=== PATIENT | male | born 1970 | race Caucasian/White ===

== ENCOUNTER 2017-08-01 13:06 | Emergency (ER) | payer OTHER ==
[2017-08-01] MEDS ORDERED: PROVENTIL 2.5 MG/3 ML NEB IH ONE ×2 (13:28→13:48)
[2017-08-01] MEDS ORDERED: TYLENOL 325 MG PO ONE (13:28)
--- NOTE | 2017-08-01 13:35 | ERPHSYRPT ---
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 He has one day hx of fever, chills , aches, myalgias, cough. Used advil cold and mucinex today. No V/D. Some headache and sore throat. No shortness of breath. Timing/Duration: yesterday Allergies/Adverse Reactions: No Known Drug Allergies Allergy (Verified 08/01/17 13:22) Home Medications: Fluticasone/Salmeterol Disc [Advair 250-50 Diskus 14 Dose] 1 puff IH BID 11/10/14 [History] Nebivolol HCl [Bystolic] 10 mg PO DAILY 11/10/14 [History] Hx Tetanus, Diphtheria Vaccination/Date Given: No Hx Influenza Vaccination/Date Given: No Hx Pneumococcal Vaccination/Date Given: No Immunizations Up to Date: Yes - Review of Systems Constitutional: Fever, Chills, Fatigue, Malaise, Weakness Eyes: No Symptoms Ears, Nose, & Throat: Throat Pain Respiratory: Cough, No Dyspnea Cardiac: No Chest Pain Abdominal/Gastrointestinal: No Abdominal Pain, No Nausea, No Vomiting, No Diarrhea Genitourinary Symptoms: No Dysuria Neurological: Headache, No Focal Weakness, No Parasthesia All Other Systems: Reviewed and Negative - Past Medical History Pertinent Past Medical History: Yes Neurological History: No Pertinent History ENT History: No Pertinent History Cardiac History: Hypertension Respiratory History: Asthma Endocrine Medical History: No Pertinent History Musculoskeletal History: No Pertinent History GI Medical History: No Pertinent History History: No Pertinent History Psycho-Social History: No Pertinent History Male Reproductive Disorders: No Pertinent History Other Medical History: ALLERGIES - Past Surgical History Past Surgical History: No - Social History Smoking Status: Never smoker Exposure to second hand smoke: No Drug Use: none Patient Lives Alone: No - Nursing Vital Signs Nursing Vital Signs: Initial Vital Signs Temperature 101.6 F 08/01/17 13:16 Pulse Rate 92 H 01/06/18 13:16 Respiratory Rate 20 08/01/17 13:16 Blood Pressure 124/77 08/01/17 13:16 O2 Sat by Pulse Oximetry 96 08/01/17 13:16 Pain Scale Pain Intensity 6 - Physical Exam General Appearance: alert Eye Exam: PERRL/EOMI Ears, Nose, Throat Exam: moist mucous membranes, pharyngeal erythema, No tonsillar exudate Neck Exam: normal inspection, non-tender, supple Respiratory Exam: normal breath sounds, No respiratory distress, No crackles/ rales, No wheezing Cardiovascular Exam: regular rate/rhythm, No murmur, No tachycardia Gastrointestinal/Abdomen Exam: soft, No tenderness Male Genitalia Exam: normal genitalia Back Exam: normal inspection Extremity Exam: normal inspection, normal range of motion Neurologic Exam: alert, oriented x 3, cooperative, sensation nml, No motor deficits Skin Exam: warm, dry, No rash SpO2 Interpretation: normal SpO2: 96 Oxygen Delivery: Room Air - Course Nursing assessment & vital signs reviewed: Yes Ordered Tests: Active Orders 24 hr Category Date Time Status Clean Catch Urine Specimen STAT Care 08/01/17 13:28 Active PO Popsicle STAT Care 08/01/17 13:28 Active UA W/RFX UR CULTURE Stat Lab 08/01/17 13:47 Completed Respiratory Nebulizer STAT RT 08/01/17 13:28 Active Medication Summary Discontinued Medications Generic Name Dose Route Start Last Admin Trade Name Esvinq PRN Reason Stop Dose Admin Acetaminophen 975 mg 08/01/17 13:28 08/01/17 13:41 Tylenol 325 Mg PO 08/01/17 13:29 975 mg STAT ONE Administration Acetaminophen Confirm 08/01/17 13:36 Tylenol 325 Mg Administered 08/01/17 13:37 Dose 975 mg .ROUTE .STK-MED ONE Albuterol Sulfate 2.5 mg 08/01/17 13:28 Proventil 2.5 Mg/3 Ml Neb IH 08/01/17 13:29 STAT ONE Albuterol Sulfate Confirm 08/01/17 13:48 Proventil 2.5 Mg/3 Ml Neb Administered 08/01/17 13:49 Dose 2.5 mg IH .STK-MED ONE Lab/Rad Data: Laboratory Results 08/01/17 Range/Units 13:47 Ur Collection Type CLEAN CATCH Urine Color YELLOW (YELLOW) Urine Appearance CLEAR (CLEAR) Urine pH 8.0 (5-6) Ur Specific [place] 1.010 (1.005-1.025) Urine Protein NEGATIVE (Negative) Urine Ketones NEGATIVE (NEGATIVE) Urine Blood NEGATIVE (0-5) [place]/ul Urine Nitrite NEGATIVE (NEGATIVE) Urine Bilirubin NEGATIVE (NEGATIVE) Urine Urobilinogen NORMAL (0-1) mg/dL Ur Leukocyte Esterase NEGATIVE (NEGATIVE) Urine Culture Reflexed NO (NO) Urine Glucose NEGATIVE (NEGATIVE) mg/dL Specimen Received 9910 08-01-17 - Progress Progress Note: 08/01/17 13:32 He deven has influenza. Will empirically treat with tamiflu. He has asthma meds. Encouraged po fluids. Instr given. 08/01/17 13:52 Lungs clear. Neb given. Drinking water. UA negative. Rx tamiflu sent. Counseled pt/family regarding: diagnosis, need for follow-up - Departure Time of Disposition: 13:52 Departure Disposition: Home Clinical Impression: Influenza, History of asthma Condition: Stable Critical Care Time: No Referrals: TUTU FAGAN MD [Primary Care Provider] - Instructions: Influenza -- Adult, Fever (Symptom) -- Adult Additional Instructions: UPPER RESPIRATORY INFECTIONS 1. The signs and symptoms of a cold may last up to 10 days. These illnesses are due to viruses which are not treatable with antibiotics. 2. The following suggestions can aid in recovery and to minimize symptoms: A. Increase fluid intake. B. Acetaminophen or Ibuprofen as directed. C. Avoid smoking environments as this will increase the risk of developing pneumonia. D. For children, may use a cool mist vaporizer in the child's room. 3. Contact your Family Physician if you note: A. Persisten fever >103 for more than 3 days B. Breathing difficulty C. Productive cough of yellow/green sputum D. Illness greater than 7 days E. Persistent vomiting F. Stiff neck Tylenol or ibuprofen every 6 hours for fever/discomfort. Rx tamiflu. Drink plenty of oral fluids. Return for difficulty breathing or concerns. Off work until fever free for 24-48 hours. Prescriptions: Oseltamivir 75 mg [Tamiflu 75MG Capsule] 75 mg PO BID #10 cap
[2017-08-01] MEDS ORDERED: TYLENOL 325 MG ONE (13:36)
[2017-08-01 13:49] LABS: Appearance CLEAR (CLEAR); Bilirubin NEGATIVE (NEGATIVE); Blood NEGATIVE Ery/ul (0-5); Glucose NEGATIVE (NEGATIVE); Ketones NEGATIVE (NEGATIVE); Leukocyte Esterase NEGATIVE (NEGATIVE); Nitrite NEGATIVE (NEGATIVE); Protein,Urine Dip NEGATIVE (Negative); Urobilinogen NORMAL mg/dL (0-1)
[2017-08-01 14:01] VITALS: BP 120/58; PULSE 88; O2SAT 98
== END 2017-08-01 14:04 | disposition home or self-care (01) ==
LOC: ED 13:06
DX: J11.1 Influenza due to unidentified influenza virus with other respiratory manifestations (principal); Z87.09 Personal history of other diseases of the respiratory system
CPT/HCPCS: 81002; 94640; 99283; A9270-GY

== ENCOUNTER 2017-08-31 09:05 | Day surgery (SDC) | payer OTHER ==
--- NOTE | 2017-08-31 08:18 | HP ---
DATE OF SURGERY: 08/31/2017 HISTORY OF PRESENT ILLNESS: The patient is a 46 year-old with subcu mass on his right neck. He also has an area on the chest as well, posterior neck and lateral chest. Question lipoma versus other etiology. PAST MEDICAL HISTORY: Hypertension, asthma, chronic obstructive pulmonary disease. PAST SURGICAL HISTORY: He denied any prior surgeries. MEDICATIONS: Bystolic, Breo, Xyzal, Dymista, Zovirax. ALLERGIES: NKDA. FAMILY HISTORY: Hypertension. SOCIAL HISTORY: No smoking or alcohol abuse. REVIEW OF SYSTEMS: Twelve systems reviewed per admission assessment. No chest pain or palpitations other systems negative or noncontributory as above and per preadmission questionnaire. PHYSICAL EXAMINATION: GENERAL: No acute distress. HEENT: Sclerae nonicteric. NECK: No JVD. Posterior neck subcutaneous mass question lipoma or other etiology. CHEST: Subcutaneous mass question of lipoma. CVS: Regular rate and rhythm. ABDOMEN: Soft. No peritoneal signs. EXTREMITIES: No significant edema. NEURO: Alert, oriented, moving extremities symmetrically. No gross motor deficits noted. IMPRESSION: Enlarging symptomatic subcutaneous masses posterior neck and chest area question lipoma, nodule, node, cyst or other etiology either way enlarging, increasingly symptomatic and desires excision. I feel he is a candidate. Risks and benefits explained in detail including but not limited to bleeding or infection, risk of hematoma or seroma formation, risk of wound infection possibly requiring packing, general risk of aches, pains, bloating or numbness, risk of motor nerve irritation, scar formation, weakness or numbness but not limited to. He understands and agrees to the planned procedure and will proceed with excisional biopsy of posterior neck and chest mass, lipoma, node or nodule as an outpatient.
[~2017-08-31 09:05] MED LIST: Lactated Ringers 1,000 ML IV ONE; Lactated Ringers 1,000 ML IV SCH; Sensorcaine 0.25% 10 ML ONE
[2017-08-31] MEDS ORDERED: Quelicin Fliptop 200 MG/10 ML IJ ONE ×2 (09:06)
[2017-08-31] MEDS ORDERED: Amidate 20 MG/10 ML IV ONE (09:06)
[2017-08-31] MEDS ORDERED: Versed 2 MG/2 ML Injection IV ONE (09:06)
[2017-08-31] MEDS ORDERED: SUBLIMAZE 250 MCG/5 ML IJ ONE ×2 (09:06)
[2017-08-31] MEDS ORDERED: Zemuron 100 MG/10 ML IJ ONE ×2 (09:06)
[2017-08-31] MEDS ORDERED: DIPRIVAN 200 MG/20 ML IV ONE ×2 (09:06)
[2017-08-31] MEDS ORDERED: Sensorcaine 0.25% 10 ML ONE (10:23)
[2017-08-31 13:55] VITALS: BP 137/86; PULSE 52; O2SAT 95
--- NOTE | 2017-09-01 11:34 | OP ---
SURGERY DATE/TIME: 08/31/2017 1149 PREOPERATIVE DIAGNOSIS: Enlarging symptomatic posterior neck subcutaneous mass and small anterior chest lipomatous mass. POSTOPERATIVE DIAGNOSIS: Enlarging symptomatic posterior neck subcutaneous mass and small anterior chest lipomatous mass, path pending. PROCEDURES: 1) Excision and biopsy subcutaneous lipomatous mass posterior neck approximately 3.2 cm with margins. 2) Excision and biopsy of subcutaneous chest lipomatous mass approximately 1.8 cm with margins with intermediate closure. SURGEON: Dr. Wild Elmore. HOSPITAL RECEPTIONIST: Andre Portillo, Medical Student III. ANESTHESIA: General. ESTIMATED BLOOD LOSS: Minimal. INDICATIONS: As noted above. Risks and benefits explained in detail and not limited to and consent obtained. Site confirmed with the patient in the preoperative holding area. DESCRIPTION OF PROCEDURE AND FINDINGS: He is taken to the operating room. General anesthesia introduced. Positioning and appropriate position and padding per anesthesia and OR staff. Chest and posterior neck were prepped and draped in usual sterile fashion. After official time out and no disagreement with planned procedure, diagonal incision from the skin line anterior chest subcutaneous mass area carried down through subcu circumferentially around this lipomatous density and carefully mobilized upwards and measured approximately 1.8 cm in size and passed off for pathology. Good hemostasis noted. Subcu closed with 0 Vicryl, skin closed with 4-0 Vicryl. Steri-Strips and sterile dressing applied. Attention then turned to posterior neck mass. A transverse incision made overlying this area. Dissection carried down into the deep lipomatous density and it is carefully dissected off the underlying fascia and passed off. It was about 3.2 cm in size and passed off for pathology. Good hemostasis noted. Deep subcu closed with interrupted 3-0 Vicryl, superficial subcu closed with 3-0 Vicryl, skin closed with 4-0 Vicryl. Sterile dressing applied. 0.25% Marcaine local injected along the area. The patient tolerated the procedure well. There were no immediate complications. He was transferred to the recovery room in stable condition. I will go to the waiting area to see if there is any family to discuss the findings with.
== END 2017-08-31 14:03 | disposition home or self-care (01) ==
LOC: SDC 09:05
PROVIDERS: ATTEND Surgery
PROC: 0HB4XZZ Excision of Neck Skin, External Approach (ICD-10-PCS; principal; 2017-08-31)
PROC: 0HQ5XZZ Repair Chest Skin, External Approach (ICD-10-PCS; 2017-08-31)
PROC: 0WB8XZZ Excision of Chest Wall, External Approach (ICD-10-PCS; 2017-08-31)
DX: D17.0 Benign lipomatous neoplasm of skin and subcutaneous tissue of head, face and neck (principal); D17.1 Benign lipomatous neoplasm of skin and subcutaneous tissue of trunk; R20.8 Other disturbances of skin sensation; I10 Essential (primary) hypertension; J45.909 Unspecified asthma, uncomplicated; J44.9 Chronic obstructive pulmonary disease, unspecified; Z79.899 Other long term (current) drug therapy
CPT/HCPCS: 00300; 00400; 88304; J0330; J2250; J2704; J3010

== ENCOUNTER 2017-10-03 02:48 | Emergency (ER) | payer OTHER ==
[2017-10-03] MEDS ORDERED: DECADRON 10MG INJ. IV ONE (03:07)
[2017-10-03] MEDS ORDERED: Pepcid 20 MG VIAL IV ONE ×2 (03:08→03:19)
[2017-10-03] MEDS ORDERED: Sodium Chloride 0.9% 500 ML 500 ML IV SCH (03:15)
[2017-10-03 03:19] VITALS: PULSE 82
[2017-10-03] MEDS ORDERED: Sodium Chloride 0.9% 1000 ML 1,000 ML ONE (03:19)
[2017-10-03] MEDS ORDERED: DECADRON 10MG INJ. ONE (03:19)
--- NOTE | 2017-10-03 03:19 | ERPHSYRPT ---
- History of Present Illness Time Seen by Provider: 10/03/17 03:00 Source: patient Physician History: PATIENT COMPLAINS OF A SORETHROAT TONIGHT ASSOCIATED WITH SWELLING IN BACK OF THROAT. DENIES DIFFICULTY BREATHING, SWALLOWING, OR HOARSENESS. STATES HE TOOK OVER THE COUNTER 50MG OF BENADRYL PRIOR TO ARRIVAL. PATIENT ALSO COMPLAINS OF A PRODUCTIVE COUGH WITH GREEN SPUTUM, DENIES FEVER OR CHILLS. ADMITS TO TAKING ZYRTEC ON OCCASION FOR THROAT TIGHTNESS. Timing/Duration: this evening Severity: mild ENT Location: throat Prearrival Treatment: over the counter meds (BENADRYL 50MG ORALLY) Modifying Factors: Improves With: nothing Associated Symptoms: sore throat (AND TIGHTNESS) Allergies/Adverse Reactions: No Known Drug Allergies Allergy (Verified 10/03/17 03:19) Home Medications: Acyclovir 800 mg [Zovirax 800 mg] 800 mg PO UD 08/28/17 [History] Azelastine/Fluticasone [Dymista Nasal [place] 23Gm] 50 mg IH BID 08/28/17 [History ] Fluticasone/Vilanterol [Breo Ellipta 200-25 Mcg INH] 200 mg IH DAILY 08/28/17 [ History] Levocetirizine Dihydrochloride [Xyzal] 5 mg PO DAILY 08/28/17 [History] Nebivolol HCl 5 MG [Bystolic 5 MG] 5 mg PO DAILY 08/28/17 [History] Hx Tetanus, Diphtheria Vaccination/Date Given: No Hx Influenza Vaccination/Date Given: No Hx Pneumococcal Vaccination/Date Given: No - Review of Systems Constitutional: No Fever, No Chills Eyes: No Symptoms Ears, Nose, & Throat: No Symptoms, Throat Pain Respiratory: No Symptoms, No Cough, No Dyspnea Cardiac: No Symptoms, No Chest Pain, No Edema, No Syncope Abdominal/Gastrointestinal: No Symptoms, No Abdominal Pain, No Nausea, No Vomiting, No Diarrhea Genitourinary Symptoms: Incontinence, No Dysuria Musculoskeletal: No Symptoms, No Back Pain, No Neck Pain Skin: No Symptoms, No Rash Neurological: No Dizziness, No Focal Weakness, No Sensory Changes Psychological: No Symptoms Endocrine: No Symptoms All Other Systems: Reviewed and Negative - Past Medical History Pertinent Past Medical History: Yes Neurological History: No Pertinent History ENT History: No Pertinent History Cardiac History: Hypertension Respiratory History: Asthma Endocrine Medical History: No Pertinent History Musculoskeletal History: No Pertinent History GI Medical History: No Pertinent History History: No Pertinent History Psycho-Social History: No Pertinent History Male Reproductive Disorders: No Pertinent History Other Medical History: ALLERGIES - Past Surgical History Past Surgical History: Yes Male Surgical History: Vasectomy Other Surgical History: colonoscopy - Social History Smoking Status: Never smoker Exposure to second hand smoke: No Drug Use: none Patient Lives Alone: No - Nursing Vital Signs Nursing Vital Signs: Initial Vital Signs Temperature 97.8 F 10/03/17 02:49 Pulse Rate 82 10/03/17 02:49 Respiratory Rate 18 10/03/17 02:49 Blood Pressure 162/96 10/03/17 02:49 O2 Sat by Pulse Oximetry 96 10/03/17 02:49 Pain Scale Pain Intensity 0 - Physical Exam General Appearance: no apparent distress, alert, other (NO STRIDOR) Eye Exam: bilateral eye: normal inspection, PERRL, EOMI Ear Exam: bilateral ear: auricle normal, canal normal, TM normal Nasal Exam: normal inspection Throat Exam: uvula swelling (PHARYNGEAL ERYTHEMA, NO PALATE SWELLING, NO UVULA DEVIATION) Cardiovascular/Respiratory Exam: chest non-tender, normal breath sounds Neurologic Exam: alert, oriented x 3, nml cerebellar function SpO2 Interpretation: normal SpO2: 98 Oxygen Delivery: Room Air Ordered Tests: Active Orders 24 hr Category Date Time Status CULTURE, THROAT Stat Lab 10/03/17 03:37 Received STREP SCREEN-BETA A Stat Lab 10/03/17 03:21 Ordered Medication Summary Generic Name Dose Route Start Last Admin Trade Name Freq PRN Reason Stop Dose Admin Sodium Chloride 500 mls @ 250 mls/hr 10/03/17 03:15 10/03/17 03:20 Sodium Chloride 0.9% 500 Ml IV 11/02/17 03:14 250 mls/hr .Q2H ANTONIA Administration Discontinued Medications Generic Name Dose Route Start Last Admin Trade Name Freq PRN Reason Stop Dose Admin Dexamethasone Sodium Phosphate 20 mg 10/03/17 03:07 10/03/17 03:20 Decadron 10mg Inj. IV 10/03/17 03:08 20 mg STAT ONE Administration Dexamethasone Sodium Phosphate Confirm 10/03/17 03:19 Decadron 10mg Inj. Administered 10/03/17 03:20 Dose 20 mg .ROUTE .STK-MED ONE Famotidine 20 mg 10/03/17 03:08 10/03/17 03:20 Pepcid 20 Mg Vial IV 10/03/17 03:09 20 mg STAT ONE Administration Famotidine Confirm 10/03/17 03:19 Pepcid 20 Mg Vial Administered 10/03/17 03:20 Dose 20 mg IV .STK-MED ONE Sodium Chloride Confirm 10/03/17 03:19 Sodium Chloride 0.9% 1000 Ml Administered 10/03/17 03:20 Dose 1,000 mls @ ud .ROUTE .STK-MED ONE Ceftriaxone Sodium/Dextrose 1 g in 50 mls @ 100 mls/hr 10/03/17 03:21 03:40 Rocephin 1 Gm-D5w 50 Ml Bag IV 10/03/17 03:50 100 mls/hr STAT ONE Administration Ceftriaxone Sodium/Dextrose Confirm 10/03/17 03:39 Rocephin 1 Gm-D5w 50 Ml Bag Administered 10/03/17 03:40 Dose 1 g in 50 mls @ ud IV .STK-MED ONE Lab/Rad Data: Laboratory Results 10/03/17 Range/Units 03:37 Streptococcus Screen NEGATIVE (Negative) - Progress Progress: unchanged Progress Note: 10/03/17 03:57 ADMINISTERED IV NORMAL SALINE 250ML/HR, DECADRON 20MG, PEPCID 20MG, ROCEPHIN 1GM IV Counseled pt/family regarding: lab results, diagnosis, need for follow-up - Departure Time of Disposition: 04:15 Departure Disposition: Home Clinical Impression: ACUTE PHARYNGITIS, UVULA ANGIOEDEMA Condition: Stable Critical Care Time: No Referrals: TUTU FAGAN MD [Primary Care Provider] - Additional Instructions: BEGIN DECADRON 4MG EVERY 8 HOURS DAILY FOR 3 DAYS. ANTIBIOTIC AUGMENTIN 875MG TWICE DAILY FOR 10 DAYS. TAKE OVER THE COUNTER BENADRYL 50MG EVERY 4 HOURS FOR 4 DAYS. CONSULT YOUR PRIMARY CARE PROVIDER FOR FOLLOWUP AND REFERRAL TO AN STREET FLUSHER DRIVER. Prescriptions: Amox Tr/Potass Clav. 875 mg [Augmentin 875-125 Tablet] 875 mg PO BID #20 tablet Dexamethasone 4 mg [Decadron 4 MG] 4 mg PO TID #9 tablet
[2017-10-03] MEDS ORDERED: ROCEPHIN 1 Gm-D5w 50 ml Bag** 1 G/50 ML IVPB IV ONE ×2 (03:21→03:39)
[2017-10-03 03:59] VITALS: O2SAT 98
[2017-10-03 04:31] VITALS: BP 154/98
== END 2017-10-03 04:31 | disposition home or self-care (01) ==
LOC: ED 02:48
DX: J02.9 Acute pharyngitis, unspecified (principal); T78.3XXA Angioneurotic edema, initial encounter
CPT/HCPCS: 87070; 87430; 96360; 96365; 96374; 96375; 99283; 99284; J0696; J1100

== ENCOUNTER 2021-02-21 06:34 | Day surgery (SDC) | payer OTHER ==
[~2021-02-21 06:34] MED LIST changes: -Lactated Ringers 1,000 ML IV ONE; -Sensorcaine 0.25% 10 ML ONE
[2021-02-21] MEDS ORDERED: DIPRIVAN 200 MG/20 ML IV ONE (07:51)
[2021-02-21 09:12] VITALS: BP 141/83; PULSE 62; O2SAT 97
--- NOTE | 2021-02-21 13:24 | OP ---
SURGERY DATE/TIME: 02/21/2021 0800 PREOPERATIVE DIAGNOSES: 1) Persistent gastroesophageal reflux disease. 2) Screening colonoscopy. POSTOPERATIVE DIAGNOSES: 1) Normal EGD. 2) Colon polyps x2. PROCEDURES: 1) EGD. 2) Colonoscopy. SURGEON: Dmitriy Carreno M.D. ANESTHESIA: MAC by Ronald Cat CRNA. ESTIMATED BLOOD LOSS: Minimal. SPECIMENS: Two hot forceps polypectomies from the ascending colon. DESCRIPTION OF PROCEDURES: After informed written consent was obtained, the patient was taken to the endoscopy suite. He was placed in left lateral decubitus position and bite block inserted. Anesthesia was titrated to the desired level of consciousness and the endoscope was inserted in the posterior oropharynx. Under direct visualization the esophageal mucosa was traversed and had a normal mucosal appearance free of any lesions or defects. Gastroesophageal junction likewise had a normal appearance. Upon entering the gastric cavity there was normal rugated gastric mucosa free of any lesions or defects. The pylorus was traversed and the first and second portions of the duodenum had a normal mucosal appearance free of any lesions or defects as well. Upon withdrawal again all mucosal structures appeared within normal limits. The scope was removed and the scopes were switched. Digital rectal exam showed normal sphincter tone and no internal lesions. The scope was inserted in the rectum and sequentially the entire colonic mucosa was traversed. The level of the cecum was reached and verified with direct visualization of the ileocecal valve. There were two small sessile polyps present in the ascending colon which were grasped with forceps, cauterized and removed in their entirety. They were sent for pathology testing. No other lesions were encountered prior to withdrawal. Retroflexion was performed and showed no internal lesions. The scope was removed and the patient was transferred to the recovery room in good condition. He will be advised to follow up for pathology results in the office in one week.
== END 2021-02-21 09:17 | disposition home or self-care (01) ==
LOC: SDC 06:34
PROVIDERS: ATTEND Family Medicine
DX: K21.9 Gastro-esophageal reflux disease without esophagitis (principal); Z12.11 Encounter for screening for malignant neoplasm of colon; D12.2 Benign neoplasm of ascending colon
CPT/HCPCS: 88305; J2704